=== PATIENT | male | born 1990 | race Caucasian/White ===

== ENCOUNTER 2017-04-19 06:08 | Emergency (ER) | payer BC ==
--- NOTE | 2017-04-19 07:29 | ED ---
Back Pain HPI - General Chief Complaint: Back Pain/Injury Stated Complaint: Lower back pain/injury Time Seen by Provider: 04/19/17 07:00 Source: patient, RN notes reviewed Limitations: no limitations - History of Present Illness Initial Comments: This is when it-year-old male with a history of some chronic low back problems states he believes he hurt his back was 58 daily now down to pick something up. 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 He states he did x-rays on his chiropractors which showed nothing acute. He states he's been having low back problems ever since he had a growth spurt of about 6 inches when he was a teenager. MD Complaint: back pain - Related Data Home Medications Medication Instructions Recorded Confirmed Multivitamins, Thera [Multivitamin 1 tab PO BID 04/19/17 04/19/17 (formulary)] Naproxen Sodium [Aleve] 440 mg PO Q12HR PRN 04/19/17 04/19/17 Previous Rx's Medication Instructions Recorded Cyclobenzaprine [Flexeril] 10 mg PO TID #14 tab 04/19/17 Hydrocodone/Acetaminophen [[place] 1 each PO Q6HR PRN #12 tab 04/19/17 5-325] predniSONE 20 mg PO BID #10 tab 04/19/17 Allergies Allergy/AdvReac Type Severity Reaction Status Date / Time amoxicillin Allergy Swelling Verified 04/19/17 07:36 Penicillins Allergy Swelling Verified 04/19/17 07:36 Review of Systems ROS Statement: Those systems with pertinent positive or pertinent negative responses have been documented in the HPI. ROS Other: All systems not noted in ROS Statement are negative. Past Medical History Additional Past Medical History / Comment(s): atypical heartbeat History of Any Multi-Drug Resistant Organisms: None Reported Past Surgical History: No Surgical Hx Reported Past Psychological History: No Psychological Hx Reported Smoking Status: Never smoker Past Alcohol Use History: Rare Past Drug Use History: None Reported General Exam - General Exam Comments Initial Comments: This is a well-developed well-nourished awake alert oriented 3 male Limitations: no limitations General appearance: alert, in no apparent distress Head exam: Present: atraumatic, normocephalic, normal inspection Eye exam: Present: normal appearance, PERRL, EOMI. Absent: scleral icterus, conjunctival injection, periorbital swelling ENT exam: Present: normal exam, mucous membranes moist Neck exam: Present: normal inspection. Absent: tenderness, meningismus, lymphadenopathy Respiratory exam: Present: normal lung sounds bilaterally. Absent: respiratory distress, wheezes, rales, rhonchi, stridor Cardiovascular Exam: Present: regular rate, normal rhythm, normal heart sounds. Absent: systolic murmur, diastolic murmur, rubs, gallop, clicks GI/Abdominal exam: Present: soft, normal bowel sounds. Absent: distended, tenderness, guarding, rebound, rigid Extremities exam: Present: normal inspection, full ROM, normal capillary refill. Absent: tenderness, pedal edema, joint swelling, calf tenderness Back exam: Present: normal inspection, tenderness (Tenderness over the SI joints no spinous process tenderness no gluteal tenderness.) Neurological exam: Present: alert, oriented X3, CN II-XII intact Psychiatric exam: Present: normal affect, normal mood Skin exam: Present: warm, dry, intact, normal color. Absent: rash Course Vital Signs 04/19/17 04/19/17 06:13 08:45 Temperature 97.5 F L 97.7 F Pulse Rate 90 69 Respiratory 16 18 Rate Blood Pressure 142/85 130/63 O2 Sat by Pulse 98 98 Oximetry Medical Decision Making - Medical Decision Making I did discuss findings with the patient. He will be discharged the placed on muscle relaxers pain medication as well as steroids he is a follow-up with Dr. Jean Baptiste, spinal surgery. - Lab Data Lab Results 04/19/17 Range/Units 07:30 Urine Color Yellow Urine Appearance Clear (Clear) Urine pH 6.0 (5.0-8.0) Ur Specific [place] 1.028 (1.001-1.035) Urine Protein Trace H (Negative) Urine Glucose (UA) Negative (Negative) Urine Ketones Negative (Negative) Urine Blood Negative (Negative) Urine Nitrite Negative (Negative) Urine Bilirubin Negative (Negative) Urine Urobilinogen <2.0 (<2.0) mg/dL Ur Leukocyte Esterase Negative (Negative) - Radiology Data Radiology results: report reviewed (I did review the imaging and reports are is diffuse degenerative disc disease mild-moderate central canal stenosis at L2-3 and L3 to 4 also ordered 5), image reviewed Disposition Clinical Impression: Strain of lumbar region, Degeneration of intervertebral disc Disposition: HOME SELF-CARE Condition: Good Instructions: Chronic Back Pain (ED), Acute Low Back Pain (ED) Prescriptions: Cyclobenzaprine [Flexeril] 10 mg PO TID #14 tab Hydrocodone/Acetaminophen [[place] 5-325] 1 each PO Q6HR PRN #12 tab PRN Reason: Pain predniSONE 20 mg PO BID #10 tab Referrals: None,Stated [Primary Care Provider] - 1-2 days
[2017-04-19 07:44] LABS: Appearance,Urine Clear (Clear); Bilirubin,Urine Negative (Negative); Glucose,Urine (UA) Negative (Negative); Ketones,Urine Negative (Negative); Leukocyte Esterase,Urine Negative (Negative); Nitrite,Urine Negative (Negative); Protein,Urine Trace (Negative); Specific Gravity,Urine 1.028 (1.001-1.035); UA Billing (MACRO vs. MICRO) CHEM; Urobilinogen,Urine <2.0 mg/dL (<2.0)
--- NOTE | 2017-04-19 08:31 | CT ---
EXAMINATION TYPE: CT lumbar spine wo con DATE OF EXAM: 04/19/2017 8:23 AM COMPARISON: NONE HISTORY: Low back pain CT DLP: 656.60 mGycm Automated exposure control for dose reduction was used. Unenhanced CT of the lumbar spine was performed. Bone and soft tissue window settings are submitted as well as coronal and sagittal reconstructions. FINDINGS: Paraspinal soft tissues are normal. Vertebral body height and alignment are maintained. No fractures are seen. There is no spondylolysis or spondylolisthesis. At L2-3, there is a broad-based disc displacement. This is effacing the thecal sac. There is mild to moderate central canal stenosis at this level. Intervertebral foramina are well maintained. The facet s are unremarkable. L3-4, there is a diffuse disc displacement. Intervertebral foramina are maintained. The facets are un remarkable. There is mild to moderate central canal stenosis. At L4-5, there is a diffuse disc displacement. Intervertebral foramina are reasonably well-maintained . There is mild to moderate central canal stenosis. At L5-S1, no definite abnormality is seen. IMPRESSION: 1. DIFFUSE DEGENERATIVE DISC DISEASE. 2. MILD TO MODERATE CENTRAL CANAL STENOSIS AT L2-3, L3-4 AND L4-5.
[2017-04-19 08:46] VITALS: BP 130/63; PULSE 69; RESP 18; TEMP 97.7
[2017-04-19] MEDS ORDERED: predniSONE 50 MG TAB PO STA (09:02)
== END 2017-04-19 09:10 | disposition home or self-care (01) ==
LOC: EC 06:08
DX: S39.012A Strain of muscle, fascia and tendon of lower back, initial encounter (principal); M51.36 Other intervertebral disc degeneration, lumbar region; Z79.899 Other long term (current) drug therapy; Z88.0 Allergy status to penicillin
CPT/HCPCS: 81003; 72131; 99284; J7512

== ENCOUNTER → 2022-05-12 | Outpatient (CLI) | payer OTHER ==
[2022-05-12 17:44] LABS: HCT 42.5 % (39.6-50.0); HGB 14.6 g/dL (13.0-17.0); MCHC 34.4 g/dL (32.0-37.0); MCV 90.2 fL (80.0-97.0); NRBC Per 100 WBC 0 /100 WBCS (0.0-0.0); Platelet Count 286 X 10*3/uL (140-440); RBC 4.71 X 10*6/uL (4.40-5.60); RDW 12.3 % (11.5-14.5); WBC 4.56 X 10*3/uL (4.50-10.00)
[2022-05-12 18:06] LABS: ALT 54 U/L (10-49); AST 33 U/L (14-35); Albumin 4.9 g/dL (3.8-4.9); Alkaline Phosphatase 66 U/L (41-126); BUN/Creat Ratio 16.45 Ratio (12.00-20.00); Blood Urea Nitrogen 18.1 mg/dL (9.0-27.0); Calcium 9.7 mg/dL (8.7-10.3); Carbon Dioxide 28.6 mmol/L (20.0-27.5); Chloride 101 mmol/L (96-109); Chol/HDL Ratio 7.79 Ratio; Globulin 2.6 g/dL (1.6-3.3); Glucose 90 mg/dL (70-110); LDL Cholesterol,Calculated 168.9 mg/dL (0.0-131.0); Non-African American GFR(CKD) 87.1 (60.0-200.0); Potassium 4.4 mmol/L (3.5-5.5); Sodium 138 mmol/L (135-145); Total Protein 7.5 g/dL (6.2-8.2)
[2022-05-12 20:10] LABS: Gliadin AB IgA, Deaminated NEGATIVE (NEGATIVE); Gliadin AB IgA, Unit <0.2 U/mL; Gliadin AB IgG, Deaminated NEGATIVE (NEGATIVE); Gliadin AB IgG, Unit <0.4 U/mL
== END | disposition home or self-care (01) ==
LOC: LABWHC1 13:23
PROVIDERS: ATTEND Family Medicine
DX: E11.9 Type 2 diabetes mellitus without complications (principal); E78.5 Hyperlipidemia, unspecified; E03.9 Hypothyroidism, unspecified; R10.13 Epigastric pain; M06.9 Rheumatoid arthritis, unspecified
CPT/HCPCS: 36415; 80053; 80061; 83036; 83516; 84403; 84443; 85027